=== PATIENT | male | born 1935 | race Caucasian/White ===

== ENCOUNTER → 2016-09-07 09:48 | Outpatient (CLI) | payer MEDICARE, OTHER ==
[2014-12-04 10:04] VITALS: BMI 33.0
[~2016-09-07 09:48] MED LIST: BAYER CHEWABLE81 MG PO; CORDARONE200 MG PO; COUMADIN5 MG PO; ELIQUIS5 MG PO; HCTZ25 MG PO; HYTRIN5 MG PO; PROSCAR5 MG PO; RYTHMOL150 MG PO; ZOCOR10 MG PO
== END | disposition home or self-care (01) ==
LOC: D.CT 09-06 10:30
DX: R26.9 Unspecified abnormalities of gait and mobility (principal)

== ENCOUNTER → 2016-09-27 08:03 | Outpatient (CLI) | payer MEDICARE, OTHER ==
[2014-12-04 10:04] VITALS: BMI 33.0
--- NOTE | 2016-09-27 10:09 | NUR ---
1000-PATIENT RECD TO ROOM 2508 POST CISTERNOGRAM. PATIENT TO LIE DOWN UNTIL 1230 WHEN HE IS RESCANNED. IS AT BEDSIDE. CUP OF COFFEE AND DIET SODA PROVIDED. ORIENTED TO ROOM AND CALL LIGHT.
--- NOTE | 2016-09-27 12:33 | NUR ---
1110-REGULAR LUNCH TRAY SERVED, HOB UP 45%. 1200-RESTING QUIETLY, RESP WITH EASE. DENIES NEEDS OR REQUESTS. AT BEDSIDE.
--- NOTE | 2016-09-27 12:40 | NUR ---
1235-TO RADIOLOGY WITH BRICE FOR SCAN. WILL BE RELEASED FROM RADIOLOGY AFTER SCAN AND WILL NOT RETURN TO OPS.
== END | disposition home or self-care (01) ==
LOC: D.NM 08:03
DX: R26.9 Unspecified abnormalities of gait and mobility (principal); R93.8 Abnormal findings on diagnostic imaging of other specified body structures

== ENCOUNTER 2017-01-28 06:56 | Outpatient (CLI) | payer MEDICARE, OTHER ==
[~2017-01-28] VITALS: Ht 172.7 cm; Wt 90.9 kg
--- NOTE | ~2017-01-28 | HEMODYNAMI ---
PATIENT:PADMA VILLALOBOS MEDICAL RECORD: [id number] : 31 LOCATION:D.CAT ADMISSION DATE: 01/28/17 Generatedon:01/28/20179:34 Patient name: PADMA VILLALOBOS Patient #: [id number] SSN: : 1935 Date of study: 01/28/2017 Page: Of Hemodynamic Procedure Report Patient Data Patient Demographics Procedure consent was obtained First Name: PADMA Gender: Male Last Name: WILFREDO : 1935 Middle Initial: D Age: 81 year(s) Patient #: [id number] Race: Additional ID: [id number] Contact details Address: [address] [place] [address] State: [place] City: [place] Zip code: [address] Past Medical History Allergies: No known allergies Admission Admission Data Admission Date: 01/28/2017 Admission Time: 6:56 Admit Source: Other Height (in.): 68 BSA: 2.04 (m2) Height (cm.): 172.72 BMI: 30.41 (kg/m2) Weight (lbs.): 200 Weight (kg.): 90.72 Lab Results Lab Result Date: 01/28/2017 Lab Result Time: 0:00 Biochemistry Name Units Result Min Max BUN mg/dl 13 --(--*-)-- 7 18 Creatinine mg/dl 1.4 --(----)*- 0.6 1.3 CBC Name Units Result Min Max Hemoglobin g/dl 14.8 --(-*--)-- 13.5 17.5 Coagulation Name Units Result Min Max INR units 1.8 --(----)-* 0.85 1.17 PT sec 20.9 --(----)-* 11.6 15 Procedure Procedure Types Cath Procedure Diagnostic Procedure Cardioversion Procedure Description Procedure Date Procedure Date: 01/28/2017 Procedure Start Time: 9:19 Procedure End Time: 9:34 Procedure Staff Name Function Tanvi Quezada RN Nurse Roland Cat RT Gripper Machine Operator Ismael Eastman RT Monitor Ta Ortiz MD Performing Physician Procedure Data Cath Procedure Fluoroscopy Diagnostic fluoroscopy Total fluoroscopy Time: 0 time: 0 min min Diagnostic fluoroscopy Total fluoroscopy dose: 0 dose: 0 mGy mGy Contrast Material Contrast Material Type Amount (ml) Isovue 300 0 Estimated blood loss: 0 ml Procedure Complications No complications Procedure Medications Medication Administration Route Dosage Oxygen NC 2 l/min Refer to Anesthesia Notes for Sedation Medications Hemodynamics Rest BSA: 2.04 (m2) HGB: 14.8 (g/dl) O2 Consumption: Estimated: 228.55 (ml/min) O2 Co nsumption indexed: Estimated:112.03 (ml/min/m) Heart Rate: 65 (bpm) Snapshots Pre Cath Intra NCS Post Cath Vital Signs Time Heart Resp SPO2 etCO2 [id number] Respiration NIBP (mmHg) Rhythm Pain Sedation Rate (ipm) (%) (mmHg) (mmHg) (CO2) (ipm) Status Leve l (bpm) 9:10:33 74 22 99 0 0 Measuring A-Fib 0 (1 1) 10(A) , No pain 9:10:43 54 19 100 0 0 157/109(119) A-Fib 0 (1 1) 10(A) , No pain 9:15:03 56 19 100 28.6 15 18 163/120(142) A-Fib 0 (1 1) 10(A) , No pain 9:19:28 54 18 100 19.5 3.7 19 159/89(137) A-Fib 0 (1 1) 6(A) , No pain 9:21:41 64 30 99 0 0 139/89(103) 1 0 (1 1) 6(A) degree , No AV pain Block 9:25:03 65 22 89 0 0 138/84(103) 1 0 (1 1) 6(A) degree , No AV pain Block 9:28:45 59 21 100 10.5 3 18 138/81(114) 1 0 (1 1) 6(A) degree , No AV pain Block 9:32:18 56 26 100 0 0 135/69(97) 1 0 (1 1) 10(A) degree , No AV pain Block Medications Time Medication Route Dose Verified Delivered Reason Notes Effectivene ss by by 9:09:24 Oxygen NC 2 Ta Tinajero Per l/min Diana Quezada RN physician 9:19:22 Refer to Ta Chappell Per Anesthesia Diana Ortiz MD physician Notes for Sedation Medications Procedure Log Time Note 8:40:54 Roland Cat RT(R) sent for patient. Start room use. 8:56:11 Time tracking: Regular hours 8:56:17 Plan of Care:Hemodynamics will remain stable., Cardiac rhythm will remain stable., Comfort level will be maintained., Respiratory function will remain adequate., Patient/ family verbilizes understanding of procedure., Procedure tolerated without complication., Recovers from procedure without complications.. 9:03:38 Patient arrived from Pre/Post Procedure Room to CCL 1. Patient remains on bed/stretcher for procedure. 9:03:40 Warm blankets applied, and breonna hugger turned on for patient comfort. 9:03:41 Correct patient and procedure confirmed by team. 9:03:44 Signed procedure consent form obtained from patient. 9:03:45 ECG and BP/O2 sat monitors applied to patient. 9:03:56 Delroy Resendiz present and monitoring patient for TIVA. 9:08:44 Vital chart was started 9:08:47 Baseline sample Acquired. 9:09:16 Rhythm: atrial fibrillation 9:09:17 Full Disclosure recording started 9:09:24 Oxygen 2 l/min NC was administered by Tanvi Quezada RN; Per physician; 9:09:25 H&P Date Dictated: 01/19/2017 Within 30 days and on chart., H&P Addendum completed by physician on day of procedure. (MUST COMPLETE FOR ALL OUTPATIENTS). 9:09:26 Pre-procedure instructions explained to patient. 9:09:26 Pre-op teaching completed and patient verbalized understanding. 9:09:27 Family in waiting room. 9:09:29 Patient NPO since Midnight. 9:09:31 Is the patient allergic to Iodine/contrast media? No. 9:09:32 Is patient on blood thinner?Yes 9:09:34 ACC The patient was administered the following blood thiners within the last 24 hours: Xarelto 9:09:37 Patient diabetic? No. 9:09:39 Previous problem with sedation/anesthesia? No ? 9:09:39 Snore? Yes 9:09:40 Sleep apnea? Yes 9:09:41 Deviated septum? No 9:09:42 Opens mouth fully? Yes 9:09:43 Sticks out tongue? Yes 9:09:44 Airway obstruction? No ? 9:09:47 Dentures? Yes OUT 9:09:54 Patient pain scale 0/10 ?. 9:10:01 IV patent on arrival in left forearm with 0.9% NaCl at [facility]. 9:10:04 Lab results completed and on chart. 9:10:37 Lab Result : BUN 13 mg/dl 9::37 Lab Result : Hemoglobin 14.8 g/dl 9::37 Lab Result : Creatinine 1.4 mg/dl 9::37 Lab Result : PT 20.9 sec 9::37 Lab Result : INR 1.8 units 9::42 Alarms reviewed by Neal Frost 9:10:49 Quick Combo opened to sterile field. 9:11:00 Quick combo pads placed on patients chest and back. 9:12:06 Admit Source: Other 9:12:10 Patient Height : 68 cm 9:12:12 Patient Weight : 200 kg 9:14:11 Baseline sample Acquired. 9:18:05 --------ALL STOP TIME OUT------ 9:18:05 Final Timeout: patient, procedure, and site verified with staff and physician. All members of the team are in agreement. 9:18:13 Physical assessment completed. ASA score P 2 - A patient with mild systemic disease as per Ta Ortiz MD. 9:18:17 Sedation plan: TIVA Propofol 9:19:22 Refer to Anesthesia Notes for Sedation Medications was administered by Ta Ortiz MD; Per physician; 9:19:51 Procedure started. 9:20:25 Defib synced and charged at 275 Joules. 9:20:43 Shock delivered. 9:21:22 Procedure ended.(Physican Out) 9::21 Fluoroscopy time 00.00 minutes. 9::22 Fluoroscopy dose: 0 mGy 9::22 Flurop Dose total: 0 9:22:24 Contrast amount:Isovue 300 0ml. 9:26:38 Post Procedure Pulses reassessed and unchanged 9::42 Post-procedure physical assessment completed. ASA score P 2 - A patient with mild systemic disease as per Ta Ortiz MD. 9:26:46 Post procedure rhythm: sinus bradycardia 9:26:50 Estimated blood loss: 0 ml 9:26:52 Post procedure instruction explained to patient.Patient verbalizes understanding. 9:26:53 Patient needs reinforcement of post procedure teaching. 9:27:29 Procedure and supply charges have been captured, reviewed, submitted and are correct. 9:27:33 Procedure Complication : No complications 9:34:26 Vital chart was stopped 9:34:27 See physician's report for complete and final results. 9:34:30 Report given to Pre/Post Procedure Room. 9:34:33 Patient transfered to Pre/Post Procedure Room with Stretcher. 9:34:35 Procedure ended. 9:34:35 Full Disclosure recording stopped 9:34:41 End room use (Document Last) Device Usage Item Manufacture Quantity Catalog Hospital Part Current Minimal Lot# / Name Number Charge Number Stock Stock Otilio nm# Code [employer] 1 [id number] Combo Signature Audit [place] Stage Time Signature Unsigned Intra-Procedure 01/28/2017 Ismael Eastman 9:34:52 AM RT(R) Signatures Monitor : Ismael Eastman RT Signature : Date : Time : [address] [address]
[2017-01-28] MEDS ORDERED: COREG 3.1253.125 MG PO (07:37)
[2017-01-28] MEDS ORDERED: FISH OIL 1,0001 CA1 PO (07:39)
[2017-01-28] MEDS ORDERED: PROSCAR5 MG PO (07:39)
[2017-01-28] MEDS ORDERED: VITAMIN D31000 UNI2 PO (07:39)
[2017-01-28] MEDS ORDERED: GREEN TEA PO (07:40)
[2017-01-28] MEDS ORDERED: LISINOPRIL5 MG PO (07:41)
[2017-01-28] MEDS ORDERED: PROTONIX40 MG PO (07:41)
[2017-01-28] MEDS ORDERED: XARELTO10 MG PO ×2 (07:42→07:43)
[2017-01-28 07:46] VITALS: BP 138/68; Ht 172.7 cm; Wt 90.9 kg
[2017-01-28 07:49] LABS: BASOPHILS 0.9 % (0-2); EOSINOPHILS 9.1 % (0-7); HEMATOCRIT 43.9 % (42.0-54.0); HEMOGLOBIN 14.8 g/dL (13.5-17.5); IMMATURE GRANULOCYTES 0.3 % (0-5); LYMPHOCYTES 24.5 % (15-50); MCH 30.4 pg (26.0-34.0); MCHC 33.7 g/dL (31.0-37.0); MCV 90.1 fL (80.0-100.0); MEAN PLATELET VOLUME 10.3 fL (7.4-10.4); MONOCYTES 13.1 % (2-11); NEUTROPHILS 52.1 % (40-80); PLATELET COUNT 251 10x3/uL (130-400); RBC 4.87 10x6/uL (4.20-6.10); RDW 13.6 % (11.5-14.5); WBC 8.9 10x3/uL (4.8-10.8)
[2017-01-28 07:57] LABS: ANION GAP 10.2 mmol/L (8-16); CALCIUM 9.4 mg/dL (8.5-10.1); CARBON DIOXIDE 26.9 mmol/L (21.0-32.0); CREATININE - SERUM 1.4 mg/dL (0.6-1.3); POTASSIUM - SERUM 4.1 mmol/L (3.5-5.1)
[2017-01-28 07:58] LABS: INR 1.8 (0.85-1.17); PROTIME 20.9 SECONDS (11.6-15.0)
--- NOTE | 2017-01-28 09:55 | NUR ---
2L NC, NO RESP DISTRESS NOTED. NO C/O CHEST PAIN OR NAUSEA AT THIS TIME. VSS. RADAR SYSTEMS ENGINEER SHOWS SB @ 55.
--- NOTE | 2017-01-28 10:25 | NUR ---
SITTING UP IN BED SPEAKING WITH FAMILY. 2L NC, NO RESP DISTRESS NOTED. MONITOR SHOWS NSR @ 61. NO C/O PAIN OR NAUSEA. VSS.
--- NOTE | 2017-01-28 10:39 | NUR ---
LEFT WRIST PIV D/C'D WITH CATHETER INTACT, BAND AID TO SITE. UP TO BEDSIDE TO GET DRESSED.
--- NOTE | 2017-01-28 10:43 | NUR ---
UP TO RESTROOM TO VOID.
--- NOTE | 2017-01-28 10:48 | NUR ---
DISCHARGE INSTRUCTIONS GIVEN, VERBALIZED UNDERSTANDING.
--- NOTE | 2017-01-28 10:55 | NUR ---
TAKEN OUT VIA WHEELCHAIR BY CATH GREIGE GOODS EXAMINER. LEFT FACILITY WITH AND ALL FAMILY MEMBERS.
--- NOTE | 2017-01-29 08:33 | OP ---
PATIENT NAME: PADMA VILLALOBOS MEDICAL RECORD: [id number] :31 LOCATION:D.SHAYLA ADMISSION DATE: SURGEON: VICKIE RICHARDS MD OPERATION DATE: 01/28/17 CARDIOVERSION INDICATION: Atrial fibrillation. PROCEDURE IN DETAIL: IV conscious sedation was performed for anesthesia. Continuous heart rate, oxygen saturation, and blood pressure monitoring were all undertaken all of which remained stable. He received one shock restoring sinus rhythm at 275 joules. OVERALL IMPRESSION: Successful direct current cardioversion from atrial fibrillation to sinus rhythm. VICKIE RICHARDS MD at 0833 CC: [id number] DICTATION DATE: 01/28/17 1200 SOLE DYER: DM 01/28/17 1542 [facility] 01/28/17 [id number] [place] [address]
== END 2017-01-28 10:55 | disposition home or self-care (01) ==
LOC: D.CATH 06:56
PROVIDERS: Internal Medicine Interventional Cardiology
DX: I48.91 Unspecified atrial fibrillation (principal); Z01.812 Encounter for preprocedural laboratory examination

== ENCOUNTER 2018-02-10 13:43 | Inpatient (IN) | payer MEDICARE, OTHER ==
[~2018-02-10] VITALS: Ht 172.7 cm; Wt 90.6 kg
--- NOTE | ~2018-02-10 | PN ---
PATIENT:PADMA VILLALOBOS MEDICAL RECORD: [id number] LOCATION:TOM [facility]112 ADMISSION DATE: 02/10/18 PROGRESS NOTE DATE OF SERVICE: 02/28/2018 SUBJECTIVE: The patient's case was discussed with staff. He has no new complaint. OBJECTIVE: The patient denies intent to harm himself or others. He generally tolerates his medicines well. Eye contact is fair. Concentration is fair. ASSESSMENT: No change in diagnoses. PLAN: Current medicines and therapies have been reviewed, both will be maintained. He is in good behavioral control and has no thoughts of harming himself or others. He no longer has the delusions about his . I do not think even remembers having them. He no longer has thoughts about harming his neighbor because he is supposedly having relations with his . I do not even think he remembers that. In short, he is perfectly safe to go home today and I see no evidence of acute or direct dangerousness. TRANSINT:[id number] Voice Confirmation ID: [id number] DOCUMENT ID: [id number] KRISTIAN SEGAL MD at 1520 CC: [id number] DICTATION DATE: 02/28/18 1526 RESTAURANT AND BAR MANAGER: 02/28/18 1628 DIS IN 02/28/18 [facility] [address] [place] [address]
--- NOTE | ~2018-02-10 | PN ---
PATIENT:PADMA VILLALOBOS MEDICAL RECORD: [id number] LOCATION:TOM [facility]112 ADMISSION DATE: 02/10/18 PROGRESS NOTE DATE OF SERVICE: 02/20/2018 SUBJECTIVE: The patient's case was discussed with staff. He has no new complaint. OBJECTIVE: The patient denies intent to harm himself or others. He generally tolerates his medicines well. ASSESSMENT: No change in diagnoses. PLAN: Current medicines and therapies have been reviewed and will be maintained. Long-term prognosis is guarded. He has had some observed sedation, which I do not observe during the part of the day that I am here; but based on this, I am going to hold a couple of his medications to see if that might be the culprit. TRANSINT:[id number] Voice Confirmation ID: [id number] DOCUMENT ID: [id number] KRISTIAN SEGAL MD at 1427 CC: [id number] DICTATION DATE: 02/20/18 1402 PADDER: 02/20/18 1414 ADM IN [address] [place] [address]
--- NOTE | ~2018-02-10 | PN ---
PATIENT:PADMA VILLALOBOS MEDICAL RECORD: [id number] LOCATION:TOM [facility]112 ADMISSION DATE: 02/10/18 PROGRESS NOTE DATE OF SERVICE: 02/11/2018 SUBJECTIVE: The patient's case was discussed with staff. He has no new complaint. OBJECTIVE: The patient tells me that he is angry with his neighbor but now denies he wants to kill him. He says his neighbor and his are up to something and he is tired of it. He will not say exactly what they are supposed to be up to, but it includes a physical affair as well as some sort of plotting against him. ASSESSMENT: No change in diagnoses. PLAN: The patient will be maintained on current medicines; however, I am going to add Klonopin for the level of anxiety that he has. I am also going to give him some Trilafon for its antipsychotic effects. His long-term prognosis is guarded. He did not sleep well last night, so I am also going to add a low dose of trazodone for sleep consolidation. TRANSINT:[id number] Voice Confirmation ID: [id number] DOCUMENT ID: [id number] KRISTIAN SEGAL MD at 1034 CC: [id number] DICTATION DATE: 02/11/18 1424 DEVICE SALES CONSULTANT: 02/11/18 2255 ADM IN [id number] [place] [address]
--- NOTE | ~2018-02-10 | PN ---
PATIENT:PADMA VILLALOBOS MEDICAL RECORD: [id number] LOCATION:TOM [facility]112 ADMISSION DATE: 02/10/18 PROGRESS NOTE DATE OF SERVICE: 02/12/2018 SUBJECTIVE: The patient's case was discussed with staff. He has no new complaint. OBJECTIVE: The patient denies intent to harm himself or others. He is clearly severely impaired cognitively. He is eating reasonably well. He is no longer seeking exits and asking why he is here. He appears to have settled into the unit reasonably well. ASSESSMENT: No change in diagnoses. PLAN: I am not sure if the is wanting correction placement. I or the hospice social worker will find out tomorrow. He certainly is appropriate for correction placement. I am not sure if she is able to take care of him even if she wants to bring him home. He seems to have forgotten about the neighbor he was so angry with and has not mentioned anything about the and her infidelity or perceived infidelity towards him. I have reviewed his current medicines and will maintain them. TRANSINT:[id number] Voice Confirmation ID: [id number] DOCUMENT ID: [id number] KRISTIAN SEGAL MD at 1354 CC: [id number] DICTATION DATE: 02/12/18 1111 CIVIL ESTIMATOR: 02/12/18 1346 ADM IN [address] [place] [address]
--- NOTE | ~2018-02-10 | PSY ---
PATIENT NAME:PADMA VILLALOBOS MEDICAL RECORD: [id number] : 31 LOCATION:TOM [facility]8 ADMISSION DATE: 02/10/18 ACCOUNT: [id number] PSYCHIATRIC EVALUATION DATE OF EVALUATION: 02/10/18 IDENTIFYING DATA: The patient is 82 years old and he is admitted to the hospital on a voluntary basis. CHIEF COMPLAINT: Confusion. HISTORY OF PRESENT ILLNESS: The patient has had a recent history of general decline in his cognition. It has gotten to where he has become paranoid and delusional and has been accusing some neighbor of somehow harrassing him. The patient has been making threats to kill the neighbor. His has noticed a personality change and has been very upset. She does not feel that he is appropriate to be at home with her and she feels unsafe. He is referred for evaluation of these personality changes and the threatening behavior. He does admit to making these threats and has some detailed story about the neighbor that really does not make much sense. The patient is hard of hearing, but with some difficulty can be understood. PAST MEDICAL HISTORY: Significant for atrial fibrillation, coronary artery disease, hypertension, and hyperlipidemia. PAST PSYCHIATRIC HISTORY: None. FAMILY HISTORY: Unknown. ALLERGIES: No known drug allergies. CURRENT MEDICATIONS: Include Proscar, vitamin D, Protonix, lisinopril, Hatch 3 capsules, Aricept, Hytrin, Zocor, Rythmol, Coreg, Xarelto, and Ativan. SOCIAL HISTORY: The patient is and has adult children. 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 He has no history of serious alcohol abuse and no history of drug abuse. He generally functioned reasonably well both socially and occupationally. MENTAL STATUS EXAMINATION: The patient is awake, alert and oriented to person and place, but not to time or situation. His mood is euthymic. His affect is appropriate. Thought processes are circumstantial. Memory, concentration, and abstraction abilities are moderately impaired and he denies any active intent to harm himself or others as well as overt psychotic symptoms. ASSETS: Supportive family members. LIABILITIES: Limited insight. DIAGNOSTIC IMPRESSION: AXIS I: Vascular dementia. AXIS II: None. AXIS III: Hypertension, cardiac arrhythmia, hyperlipidemia. AXIS IV: Moderate stressors. AXIS V: Global assessment of functioning is 35. PLAN: At this time, the patient is admitted to the hospital for a comprehensive medical, psychological, and social evaluation. He will be treated with both mood stabilizing and memory enhancing medications. His long-term prognosis is guarded. TRANSINT:[id number] Voice Confirmation ID: [id number] DOCUMENT ID: [id number] KRISTIAN SEGAL MD at 1008 CC: [id number] DICTATION DATE: 02/10/18 1533 HEAVY MACHINERY OPERATOR: 02/10/18 1545 ADM IN [place] [id number] [place] [id number]
--- NOTE | ~2018-02-10 | DS ---
PATIENT:PADMA VILLALOBOS :31 MEDICAL RECORD: [id number] DISCHARGE SUMMARY ADMISSION DATE: 02/10/18 DISCHARGE DATE: 02/28/18 PSYCHIATRIC DISCHARGE SUMMARY IDENTIFYING DATA: The patient is 82 years old and he was admitted to the hospital on a voluntary basis because of confusion. The patient has a history of recent decline in his cognition and had become paranoid and delusional. He believed a neighbor was having sexual relations with his and he threatened to kill both the neighbor and his . Authorities intervened and he was subsequently admitted here for evaluation. HOSPITAL COURSE: The patient was admitted to the hospital and fully evaluated from both medical, psychological, and social standpoint. He was treated with both memory enhancing and mood stabilizing medications and showed dramatic improvement in his mood and delusions, but no real significant change in his underlying cognitive impairment. He had days of absence of thought of harming himself, his , or his neighbor and no recollection of the previously held delusion about the affair. It was recommended that he have 12-frqf-j-day supervision, but his wanted him to come home and that is what he wanted as well. She was warned to take the guns out of the house and that if he showed any reversion back to this delusional belief about an affair with the neighbor, she should call us immediately or call the authorities or have him brought to the Emergency Room. DISCHARGE DIAGNOSES: AXIS I: Vascular dementia. AXIS II: None. AXIS III: Hypertension, cardiac arrhythmia, hyperlipidemia. AXIS IV: Moderate stressors. AXIS V: Global assessment of functioning is 40. PLAN: At the time of discharge, the patient was in good behavioral control with no active thoughts of harming himself or others. He was tolerating his medications well. Follow up is to be with his primary care physician. TRANSINT:[id number] Voice Confirmation ID: [id number] DOCUMENT ID: [id number] KRISTIAN SEGAL MD at 1223 CC: [id number] DICTATION DATE: 03/02/18 1420 BIOLOGICAL LAB TECHNICIAN: 03/02/18 1636 DIS IN 02/28/18 [address] [place] [address]
--- NOTE | ~2018-02-10 | PN ---
PATIENT:PADMA VILLALOBOS MEDICAL RECORD: [id number] LOCATION:TOM [facility]112 ADMISSION DATE: 02/10/18 PROGRESS NOTE DATE OF SERVICE: 02/14/2018 SUBJECTIVE: The patient's case was discussed with staff. He has no new complaint. OBJECTIVE: The patient has no thoughts of harming himself or others, particularly his neighbor. He is not angry with his anymore. Dr. Corbin saw him and performed the testing, but has not written a report yet. I am sure he is impaired significantly. I do not think it is going to be in the severe range. I would guess probably moderate impairment is going to be present. I do think he needs 95-bufa-m-day supervision. His does not want him to go to a intermediate. ASSESSMENT: No change in diagnoses. PLAN: Current medicines and therapies have been reviewed and will be maintained. Long-term prognosis is guarded. TRANSINT:[id number] Voice Confirmation ID: [id number] DOCUMENT ID: [id number] KRISTIAN SEGAL MD at 1659 CC: [id number] DICTATION DATE: 02/14/18 1421 CORPORATE MEETING PLANNER: 02/14/18 1431 ADM IN [facility] [address] [place] [address]
--- NOTE | ~2018-02-10 | PN ---
PATIENT:PADMA VILLALOBOS MEDICAL RECORD: [id number] LOCATION:TOM [facility]112 ADMISSION DATE: 02/10/18 PROGRESS NOTE DATE OF SERVICE: 02/24/2018 SUBJECTIVE: The patient's case was discussed with staff. He has no new complaint. OBJECTIVE: The patient is in good behavioral control with limited insight about his condition. He tolerates his medicines well. ASSESSMENT: No change in diagnoses. PLAN: Supportive and educational interventions were made. The patient is not aggressive and does not want to harm his or his neighbor. TRANSINT:[id number] Voice Confirmation ID: [id number] DOCUMENT ID: [id number] KRISTIAN SEGAL MD at 1007 CC: [id number] DICTATION DATE: 02/24/18 1435 STRIPPER SHOVEL OPERATOR: 02/24/18 1456 ADM IN [address] [place] [address]
--- NOTE | ~2018-02-10 | PN ---
PATIENT:PADMA VILLALOBOS MEDICAL RECORD: [id number] LOCATION:TOM Mayer112 ADMISSION DATE: 02/10/18 PROGRESS NOTE DATE OF SERVICE: 02/25/2018 SUBJECTIVE: The patient's case was discussed with staff. He has no new complaint. OBJECTIVE: The patient denies intent to harm himself or others. He tolerates his medicines well. Eye contact is fair. ASSESSMENT: No change in diagnoses. PLAN: The patient has no thoughts of harming himself or others, and he was specifically asked if he had any hard feelings toward his neighbor and he says no. I anticipate he can be transitioned out of the hospital soon. TRANSINT:[id number] Voice Confirmation ID: [id number] DOCUMENT ID: [id number] KRISTIAN SEGAL MD at 1039 CC: [id number] DICTATION DATE: 02/25/18 1158 NET DEVELOPER: 02/25/18 1216 ADM IN [address] [place] [address]
--- NOTE | ~2018-02-10 | PN ---
PATIENT:PADMA VILLALOBOS MEDICAL RECORD: [id number] LOCATION:[facility] ADMISSION DATE: 02/10/18 PROGRESS NOTE DATE OF SERVICE: 02/15/2018 SUBJECTIVE: The patient's case was discussed with staff. He has no new complaint. OBJECTIVE: The patient has not been aggressive or disruptive with the staff. He has not mentioned his neighbor. He is generally tolerating his medications well. I have not had an opportunity to find out his 's wishes. I was told that he wants to bring him home. I suspect that if she does that he is going to return to the paranoid thoughts about her and the neighbor. I think it is a safety issue. Obviously, we will respect their wishes and him going home with his does not require rise to the level of being wildly inappropriate in a way that requires we call adult protective services, but most individuals this impaired live in a penitentiary. He certainly has settled in well to a routine, responded well to it and he is a personable and has enjoyed interacting with the staff and other patients. I am going to pre parole counseling aide her that the penitentiary would be appropriate. She could still visit him, take him out for holidays. I do not think it would matter much to him and I think that he would enjoy being around other people. There are some very significant advantages to the regarding safety, manageability and her being able to not have to be a 24-hour a day caregiver. Obviously, the disadvantage is financial, so these are some very serious issues that need to be sorted out, but my recommendation is half-way care in a dementia unit of a penitentiary. TRANSINT:[id number] Voice Confirmation ID: [id number] DOCUMENT ID: [id number] KRISTIAN SEGAL MD at 1354 CC: [id number] DICTATION DATE: 02/15/18 172 PLASTICS PATTERNMAKER: 02/15/18 173 ADM IN [facility] [address] [place] [id number]
--- NOTE | ~2018-02-10 | PN ---
PATIENT:PADMA VILLALOBOS MEDICAL RECORD: [id number] LOCATION:[facility] ADMISSION DATE: 02/10/18 PROGRESS NOTE DATE OF SERVICE: 02/13/2018 SUBJECTIVE: The patient's case was discussed with staff. He has no new complaint. OBJECTIVE: The patient denies intent to harm himself or others. He does tolerate his medicines well. He has fairly limited insight about his condition, but has not been aggressive. ASSESSMENT: No change in diagnoses. PLAN: The patient is going to be given Aricept for its memory enhancing properties. His level of agitation has improved, but there are concerns about his home situation, which I will address with his and pediatric social worker. TRANSINT:[id number] Voice Confirmation ID: [id number] DOCUMENT ID: [id number] KRISTIAN SEGAL MD at 1323 CC: [id number] DICTATION DATE: 02/13/18 1410 MAIL EXAMINER: 02/13/18 1426 ADM IN [place] [id number] [place] [id number]
--- NOTE | ~2018-02-10 | PN ---
PATIENT:PADMA VILLALOBOS MEDICAL RECORD: [id number] LOCATION:[facility] ADMISSION DATE: 02/10/18 PROGRESS NOTE DATE OF SERVICE: 02/21/2018 SUBJECTIVE: The patient's case was discussed with staff. He has no new complaint. OBJECTIVE: The patient still looks a little bit sleepy. He is generally tolerating his medicines well. ASSESSMENT: No change in diagnoses. PLAN: Current medicines have been reviewed and will be maintained. Long-term prognosis is guarded. TRANSINT:[id number] Voice Confirmation ID: [id number] DOCUMENT ID: [id number] KRISTIAN SEGAL MD at 1118 CC: [id number] DICTATION DATE: 02/21/18 1455 RETAIL ADVERTISING EXECUTIVE: 02/21/18 1522 ADM IN [place] [id number]
--- NOTE | ~2018-02-10 | PN ---
PATIENT:PADMA VILLALOBOS MEDICAL RECORD: [id number] LOCATION:[facility] ADMISSION DATE: 02/10/18 PROGRESS NOTE DATE OF SERVICE: 02/16/2018 SUBJECTIVE: The patient's case was discussed with staff. He has no new complaint. OBJECTIVE: The patient is in good behavioral control with limited insight about his condition. He tolerates his medicines well. He does look a little bit sleepy, although he denies that he feels sleepy. I am going to discontinue his trazodone secondary to lack of clinical indication. It is my hope that his will reconsider. I have not had an opportunity to talk with the social science teacher yet. TRANSINT:[id number] Voice Confirmation ID: [id number] DOCUMENT ID: [id number] KRISTIAN SEGAL MD at 1344 CC: [id number] DICTATION DATE: 02/16/18 1411 CHILD DEVELOPMENT PROFESSOR: 02/16/18 1513 ADM IN [place] [id number] [place] [id number]
--- NOTE | ~2018-02-10 | PN ---
PATIENT:PADMA VILLALOBOS MEDICAL RECORD: [id number] LOCATION:[facility] ADMISSION DATE: 02/10/18 PROGRESS NOTE DATE OF SERVICE: 02/27/2018 SUBJECTIVE: The patient's case was discussed with staff. He has no new complaint. OBJECTIVE: The patient is in good behavioral control with limited insight about his condition. He does tolerate his medicines well. ASSESSMENT: No change in diagnoses. PLAN: Supportive and educational interventions were made. I am going to discontinue the patient's Trilafon secondary to absence of psychotic symptoms. I would anticipate he could be transitioned out of the hospital soon. TRANSINT:[id number] Voice Confirmation ID: [id number] DOCUMENT ID: [id number] KRISTIAN SEGAL MD at 1508 CC: [id number] DICTATION DATE: 02/27/18 1457 MAINTENANCE DISPATCHER: 02/27/18 1705 ADM IN [place] [id number] [place] [address]
--- NOTE | ~2018-02-10 | PN ---
PATIENT:PADMA VILLALOBOS MEDICAL RECORD: [id number] LOCATION:[facility] ADMISSION DATE: 02/10/18 PROGRESS NOTE DATE OF SERVICE: 02/22/2018 SUBJECTIVE: The patient's case was discussed with staff. He has no new complaint. OBJECTIVE: The patient denies intent to harm himself or others. He generally tolerates his medicines well. Eye contact is fair. Concentration is fair. ASSESSMENT: No change in diagnoses. PLAN: Brief supportive and educational interventions were made. The patient is much more awake today. I am going to start him on Trilafon at a dose of 2 mg at bedtime. TRANSINT:[id number] Voice Confirmation ID: [id number] DOCUMENT ID: [id number] KRISTIAN SEGAL MD at 1303 CC: [id number] DICTATION DATE: 02/22/18 1146 [employer]F [employer] HEAD INSPECTOR AND ADJUSTER: 02/22/18 1156 ADM IN [place] [id number] [place] [id number]
--- NOTE | ~2018-02-10 | PN ---
PATIENT:PADMA VILLALOBOS MEDICAL RECORD: [id number] LOCATION:[facility] ADMISSION DATE: 02/10/18 PROGRESS NOTE DATE OF SERVICE: 02/26/2018 SUBJECTIVE: The patient's case was discussed with staff. He has no new complaint. OBJECTIVE: The patient is in good behavioral control with limited insight about his condition. He tolerates his medicines well. ASSESSMENT: No change in diagnoses. PLAN: The patient has no thoughts of harming his or his neighbor. 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
--- NOTE | ~2018-02-10 | PN ---
PATIENT:PADMA VILLALOBOS MEDICAL RECORD: [id number] LOCATION:[facility] ADMISSION DATE: 02/10/18 PROGRESS NOTE DATE OF SERVICE: 02/23/2018 SUBJECTIVE: The patient's case was discussed with staff. He has no new complaint. OBJECTIVE: The patient is in good behavioral control with limited insight about his condition. He does tolerate his medicines well. ASSESSMENT: No change in diagnoses. PLAN: I anticipate the patient can be transitioned out of the hospital soon. He is calm and cooperative and much of the problem I was seeing with sedation has now improved. TRANSINT:[id number] Voice Confirmation ID: [id number] DOCUMENT ID: [id number] KRISTIAN SEGAL MD at 0754 CC: [id number] DICTATION DATE: 02/23/18 1336 IMPLEMENTATION SPECIALIST PAYROLL: 02/23/18 1341 ADM IN [place] [id number] [place] [id number]
--- NOTE | ~2018-02-10 | PN ---
PATIENT:PADMA VILLALOBOS MEDICAL RECORD: [id number] LOCATION:[facility] ADMISSION DATE: 02/10/18 PROGRESS NOTE DATE OF SERVICE: 02/17/2018 SUBJECTIVE: No new complaint. OBJECTIVE: The patient is showing improvement. He had a good visit with his yesterday. He is no longer showing any type of threatening behavior. He ambulates using a walker. On exam, mood is euthymic. Affect is constricted. Speech is terse. Content of thought is negative for overt psychosis. Sensorium unchanged. ASSESSMENT: No change in diagnosis. PLAN: 1. Continue current medication. 2. Continue supportive therapy. TRANSINT:[id number] Voice Confirmation ID: [id number] DOCUMENT ID: [id number] QAMAR BENNETT III, MD at 0711 CC: [id number] DICTATION DATE: 02/17/18 1114 BINDERY TECHNICIAN: 02/17/18 1134 ADM IN [place] [id number] [place] [address]
[~2018-02-10 13:43] MED LIST changes: +COREG 3.1253.125 MG PO; +FISH OIL 1,0001 CA1 PO; +GREEN TEA PO; +LISINOPRIL5 MG PO; +PROTONIX40 MG PO; +VITAMIN D31000 UNI2 PO; +XARELTO10 MG PO
[2018-02-10] MEDS ORDERED: ARICEPT5 MG PO (14:52)
[2018-02-10 15:21] LABS: BASOPHILS 0.5 % (0-2); EOSINOPHILS 8.2 % (0-7); HEMATOCRIT 45.5 % (42.0-54.0); HEMOGLOBIN 15.6 g/dL (13.5-17.5); IMMATURE GRANULOCYTES 0.5 % (0-5); LYMPHOCYTES 37.2 % (15-50); MCH 30.3 pg (26.0-34.0); MCHC 34.3 g/dL (31.0-37.0); MCV 88.3 fL (80.0-100.0); MONOCYTES 12.5 % (2-11); NEUTROPHILS 41.1 % (40-80); PLATELET COUNT 235 10x3/uL (130-400); RBC 5.15 10x6/uL (4.20-6.10); RDW 13.6 % (11.5-14.5); WBC 8.5 10x3/uL (4.8-10.8)
[2018-02-10 15:53] LABS: ALBUMIN 3.5 g/dL (3.4-5.0); ANION GAP 11.7 mmol/L (8-16); BILIRUBIN - TOTAL 0.93 mg/dL (0.2-1.3); CALCIUM 9.2 mg/dL (8.5-10.1); CARBON DIOXIDE 27.7 mmol/L (21.0-32.0); CHOL - HDL RATIO 2.1 ratio (2.3-4.9); CREATININE - SERUM 1.3 mg/dL (0.6-1.3); LDL-HDL RATIO 0.9 ratio (1.5-3.5); POTASSIUM - SERUM 4.4 mmol/L (3.5-5.1); PROTEIN - SERUM 7.3 g/dL (6.4-8.2); THYROID STIMULATING HORMONE 5.38 uIU/mL (0.36-3.74)
[2018-02-10 16:05] VITALS: BP 133/72; BMI 31.3
[2018-02-10 19:39] VITALS: BP 130/82
[2018-02-11 06:25] LABS: APPEARANCE CLEAR (CLEAR); BILIRUBIN NEGATIVE (NEGATIVE); COLOR YELLOW (YELLOW); GLUCOSE NEGATIVE (NEGATIVE); KETONE NEGATIVE (NEGATIVE); NITRITE NEGATIVE (NEGATIVE); PROTEIN NEGATIVE (NEGATIVE); SPECIFIC GRAVITY 1.005 (1.005-1.020); UROBILINOGEN NORMAL (NORMAL)
[2018-02-11 08:23] LABS: FOLATE (FOLIC ACID) - SERUM 13.1 ng/mL (>3.0); VITAMIN D 25 HYDROXY 51.2 ng/mL (30.0-100.0)
[2018-02-11 09:25] VITALS: BMI 31.3
[2018-02-11 09:56] VITALS: BP 148/103
[2018-02-11 20:00] VITALS: BP 125/71; BP 139/37
[2018-02-12 09:00] VITALS: BP 141/92
[2018-02-12 10:13] VITALS: BP 136/66; BP 141/92
[2018-02-12 20:41] VITALS: BP 118/58
[2018-02-13 08:00] VITALS: BP 131/72
[2018-02-13 13:15] LABS: RAPID PLASMA REAGIN Reactive (Non Reactive); TREPONEMA PALLIDUM AB Negative (Negative)
[2018-02-13 21:06] VITALS: BP 100/40
[2018-02-14 08:02] VITALS: Ht 172.7 cm; Wt 90.6 kg
[2018-02-14 08:12] VITALS: BP 157/93
[2018-02-14 20:41] VITALS: BP 114/69
[2018-02-15 08:19] VITALS: BP 150/84
[2018-02-15 20:08] VITALS: BP 145/79
[2018-02-16 09:06] VITALS: BP 159/83
[2018-02-16 19:27] VITALS: BP 155/68
[2018-02-17 07:35] VITALS: BP 172/70
[2018-02-17 19:53] VITALS: BP 168/64
[2018-02-18 09:08] VITALS: BP 110/62
[2018-02-18 20:31] VITALS: BP 118/56
[2018-02-19 07:00] VITALS: BP 126/69
[2018-02-19 20:00] VITALS: BP 108/69
[2018-02-20 14:23] LABS: BASOPHILS 0.6 % (0-2); EOSINOPHILS 5.3 % (0-7); HEMATOCRIT 42.4 % (42.0-54.0); HEMOGLOBIN 14.5 g/dL (13.5-17.5); IMMATURE GRANULOCYTES 0.4 % (0-5); LYMPHOCYTES 30.1 % (15-50); MCH 30.2 pg (26.0-34.0); MCHC 34.2 g/dL (31.0-37.0); MCV 88.3 fL (80.0-100.0); MEAN PLATELET VOLUME 10.1 fL (7.4-10.4); MONOCYTES 9.7 % (2-11); NEUTROPHILS 53.9 % (40-80); PLATELET COUNT 221 10x3/uL (130-400); RDW 13.8 % (11.5-14.5); WBC 8.1 10x3/uL (4.8-10.8)
[2018-02-20 14:33] LABS: ANION GAP 7.8 mmol/L (8-16); CARBON DIOXIDE 26.3 mmol/L (21.0-32.0); CREATININE - SERUM 1.2 mg/dL (0.6-1.3); POTASSIUM - SERUM 4.1 mmol/L (3.5-5.1)
[2018-02-20 19:56] VITALS: BP 141/75
[2018-02-21 08:00] VITALS: BP 142/82
[2018-02-21 20:06] VITALS: BP 162/75
[2018-02-22 08:09] VITALS: BP 153/80
[2018-02-22 19:26] VITALS: BP 141/70
[2018-02-23 07:36] VITALS: BP 161/91
[2018-02-23 19:45] VITALS: BP 137/80
[2018-02-24 08:05] VITALS: BP 132/68
[2018-02-24 19:31] VITALS: BP 105/63
[2018-02-25 09:35] VITALS: BP 136/72
[2018-02-25 22:32] VITALS: BP 92/52
[2018-02-25 22:55] VITALS: BP 140/74
[2018-02-26 08:18] VITALS: BP 128/94
[2018-02-26 19:57] VITALS: BP 145/70
[2018-02-27 07:48] VITALS: BP 127/74
[2018-02-27 20:23] VITALS: BP 152/82
[2018-02-28 08:55] VITALS: BP 131/73
[2018-02-28] MEDS ORDERED: ARICEPT10 MG PO (15:23)
[2018-02-28] MEDS ORDERED: COREG6.25 MG PO (15:24)
[2018-02-28] MEDS ORDERED: SYNTHROID25 MCG PO (15:24)
== END 2018-02-28 15:45 | disposition home or self-care (01) | DRG 884 ==
LOC: D.SDCHOLD 13:43 → D.PSYCH 13:45
PROVIDERS: Psychiatry & Neurology Psychiatry
DX: F01.50 Vascular dementia, unspecified severity, without behavioral disturbance, psychotic disturbance, mood disturbance, and anxiety (principal); I10 Essential (primary) hypertension; E78.5 Hyperlipidemia, unspecified; E03.9 Hypothyroidism, unspecified; I48.91 Unspecified atrial fibrillation; G47.33 Obstructive sleep apnea (adult) (pediatric); I25.10 Atherosclerotic heart disease of native coronary artery without angina pectoris; E55.9 Vitamin D deficiency, unspecified; N40.0 Benign prostatic hyperplasia without lower urinary tract symptoms; K21.9 Gastro-esophageal reflux disease without esophagitis; F41.8 Other specified anxiety disorders